=== PATIENT | male | born 1960 | race Caucasian/White ===

== ENCOUNTER 2024-10-28 06:30 | Day surgery (SDC) | payer MEDICAID, SELFPAY ==
[2024-10-28] VITALS (8 sets, daily range): BP systolic 145–163; BP diastolic 82–100; PULSE 52–67; RESP 13–21; TEMP 36.7; O2SAT 95–98; BMI 28.5
[2024-10-28] MEDS: DiphenhydrAMINE INJ 50 MG/ML VIAL 25 MG IV (07:27)
[2024-10-28] MEDS: fentaNYL CIT INJ 50 mCg/ML AMP 2ML (ASD USE ONLY) IV (07:30)
[2024-10-28] MEDS: MIDAZOLAM INJ 1 MG/ML VIAL 2 ML (ASD USE ONLY) 2 MG IV (07:30)
[2024-10-28] MEDS: SODIUM CHLORIDE 0.9% 500 ML 500 ML 125 ML IV (07:35)
== END 2024-10-28 08:30 | disposition home or self-care (01) ==
PROVIDERS: Referring Provider Surgery; Visit Provider Surgery
PROC: 0DBE8ZX Excision of Large Intestine, Via Natural or Artificial Opening Endoscopic, Diagnostic (ICD-10-PCS; CPT 45380; principal; 2024-10-28 07:30)
DX: Z12.11 Encounter for screening for malignant neoplasm of colon (principal); Z86.0100 Personal history of colon polyps, unspecified; K64.1 Second degree hemorrhoids; K57.30 Diverticulosis of large intestine without perforation or abscess without bleeding
CPT/HCPCS: 45378; J1200; J2250; J3010; J7040